=== PATIENT | male | born 1955 | race Caucasian/White ===

== ENCOUNTER 2020-10-26 14:03 | Emergency (ER) | payer MEDICARE ==
[2020-10-26 14:10] VITALS: BP 122/68; PULSE 80; RESP 18; TEMP 98.2
--- NOTE | 2020-10-26 14:44 | ED ---
Recheck HPI - General Chief Complaint: Recheck/Abnormal Lab/Rx Stated Complaint: Abnormal labs Time Seen by Provider: 10/26/20 14:11 Source: patient Mode of arrival: ambulatory Limitations: no limitations - History of Present Illness Initial Comments: Patient is a 64-year-old male with history of hypertension, diabetes, thyroid disorder, presenting to the emergency department for a recheck of abnormal labs. Patient states he had his 3 month follow-up with his doctor, they called him today stating that his potassium was elevated at 8.5 and that he needed to go into the ER. Patient denies any symptoms, no chest pain or shortness of breath, no nausea or vomiting, no elevated heart rate. He states he feels his normal self. Has been eating and drinking as normal. He has had no fevers. He has no complaints at all. Upon arrival to the ER, his vitals are stable. - Related Data Home Medications Medication Instructions Recorded Confirmed Atenolol [Tenormin] 100 mg PO DAILY 10/26/20 10/26/20 Atorvastatin [Lipitor] 40 mg PO HS 10/26/20 10/26/20 Calcium Carbonate [Calcium] 600 mg PO DAILY 10/26/20 10/26/20 Glimepiride [Amaryl] 1 mg PO BID 10/26/20 10/26/20 Levothyroxine Sodium [Synthroid] 112 mcg PO DAILY 10/26/20 10/26/20 Multivitamins, Thera [Multivitamin 1 tab PO DAILY 10/26/20 10/26/20 (formulary)] Omeprazole 40 mg PO DAILY 10/26/20 10/26/20 Pioglitazone [Actos] 30 mg PO DAILY 10/26/20 10/26/20 Triamterene-Hctz 37.5-25Mg 1 tab PO DAILY 10/26/20 10/26/20 [Maxzide 37.5-25] lisinopriL 40 mg PO DAILY 10/26/20 10/26/20 metFORMIN HCL [Glucophage] 1,000 mg PO BID 10/26/20 10/26/20 Allergies Allergy/AdvReac Type Severity Reaction Status Date / Time No Known Allergies Allergy Verified 10/26/20 14:37 Review of Systems ROS Statement: Those systems with pertinent positive or pertinent negative responses have been documented in the HPI. ROS Other: All systems not noted in ROS Statement are negative. Past Medical History Past Medical History: Diabetes Mellitus, Hyperlipidemia, Hypertension, Thyroid Disorder History of Any Multi-Drug Resistant Organisms: None Reported Past Surgical History: Tonsillectomy Past Psychological History: No Psychological Hx Reported Smoking Status: Never smoker Past Alcohol Use History: Occasional Past Drug Use History: None Reported General Exam - General Exam Comments Initial Comments: GENERAL: Patient is well-developed and well-nourished. Patient is nontoxic and in no acute distress. HEAD: Atraumatic, normocephalic. EYES: Pupils equal round and reactive to light, extraocular movements intact, sclera anicteric, conjunctiva are normal. Eyelids were unremarkable. ENT: TMs normal, nares patent, oropharynx clear without exudates. Moist mucous membranes. NECK: Normal range of motion, supple without lymphadenopathy or JVD. LUNGS: Unlabored respirations. Breath sounds clear to auscultation bilaterally and equal. No wheezes rales or rhonchi. HEART: Regular rate and rhythm without murmurs, rubs or gallops. ABDOMEN: Soft, nontender, normoactive bowel sounds. No guarding, no rebound. No masses appreciated. : Deferred MUSCULOSKELETAL: Normal extremities with adequate strength and normal range of motion, no pitting or edema. No clubbing or cyanosis. NEUROLOGICAL: Patient is alert and oriented x 3. Motor and sensory are also intact. Cranial nerves II through XII grossly intact. Symmetrical smile. Normal speech, normal gait. PSYCH: Normal mood, normal affect. SKIN: Warm, Dry, normal turgor, no rashes or lesions noted. Limitations: no limitations Course Vital Signs 10/26/20 14:06 Temperature 98.2 F Pulse Rate 80 Respiratory 18 Rate Blood Pressure 122/68 O2 Sat by Pulse 96 Oximetry Medical Decision Making - Medical Decision Making Patient is a 64-year-old male with history of diabetes, hypertension, presenting for a recheck of abnormal labs. He had labs done at his doctor's office today and returned a potassium of 8.5, he was told to go to the ER for evaluation. He is asymptomatic, his exam is normal. Vital signs are stable. Potassium was rechecked today, it is normal at 5.2. Rest of his labs are stable that was checked today. Patient stable for discharge. He can follow-up with his PCP. He is in agreement with this plan of care. Return parameters were discussed with him and he verbalized understanding. Case discussed with Dr. Salas. - Lab Data Result diagrams: 10/26/20 14:37 Lab Results 10/26/20 Range/Units 14:37 Sodium 138 (137-145) mmol/L Potassium 5.2 H (3.5-5.1) mmol/L Chloride 106 (98-107) mmol/L Carbon Dioxide 21 L (22-30) mmol/L Anion Gap 11 mmol/L BUN 38 H (9-20) mg/dL Creatinine 1.87 H (0.66-1.25) mg/dL Est GFR (CKD-EPI)AfAm 43 (>60 ml/min/1.73 sqM) Est GFR (CKD-EPI)NonAf 37 (>60 ml/min/1.73 sqM) Glucose 136 H (74-99) mg/dL Calcium 10.2 (8.4-10.2) mg/dL Magnesium 1.6 (1.6-2.3) mg/dL Total Bilirubin 0.3 (0.2-1.3) mg/dL AST 23 (17-59) U/L ALT 17 (4-49) U/L Alkaline Phosphatase 80 (38-126) U/L Creatine Kinase 79 (55-170) U/L Total Protein 7.2 (6.3-8.2) g/dL Albumin 4.5 (3.5-5.0) g/dL Disposition Clinical Impression: Abnormal laboratory test result Disposition: HOME SELF-CARE Condition: Stable Instructions (If sedation given, give patient instructions): Normal Exam (ED) Additional Instructions: Please return to the Emergency Department if symptoms worsen or any other concerns. Follow up with your PCP. Is patient prescribed a controlled substance at d/c from ED?: No Referrals: Kody Urrutia MD [Primary Care Provider] - 1-2 days Time of Disposition: 15:00
[2020-10-26 14:51] LABS: Albumin 4.5 g/dL (3.5-5.0); Calcium 10.2 mg/dL (8.4-10.2); Magnesium 1.6 mg/dL (1.6-2.3); Potassium 5.2 mmol/L (3.5-5.1); Total Bilirubin 0.3 mg/dL (0.2-1.3); Total Protein 7.2 g/dL (6.3-8.2)
== END 2020-10-26 15:04 | disposition home or self-care (01) ==
LOC: EC 14:03
DX: R79.9 Abnormal finding of blood chemistry, unspecified (principal); E07.9 Disorder of thyroid, unspecified; E11.9 Type 2 diabetes mellitus without complications; E78.5 Hyperlipidemia, unspecified; I10 Essential (primary) hypertension; Z79.84 Long term (current) use of oral hypoglycemic drugs; Z79.899 Other long term (current) drug therapy
CPT/HCPCS: 36415; 80053; 82550; 83735; 99283

== ENCOUNTER → 2021-03-01 | Outpatient (CLI) | payer MEDICARE ==
--- NOTE | 2021-03-01 15:41 | US ---
EXAMINATION TYPE: US kidneys/renal and bladder DATE OF EXAM: 03/01/2021 COMPARISON: NONE CLINICAL HISTORY: N18.31 CKD STAGE 3. abnormal labs EXAM MEASUREMENTS: Right Kidney: 9.6 x 4.0 x 5.4 cm Left Kidney: 11.3 x 4.5 x 5.2 cm Right Kidney: No hydronephrosis or masses seen Left Kidney: Anterior mid cystic lesion = 1.7 x 1.8 x 1.4 cm Bladder: distended, anechoic left jet seen There is no evidence for hydronephrosis at this point in time. No nephrolithiasis is seen. The urin marlene bladder is anechoic. Bilateral ureteral jets are seen. IMPRESSION: Renal cystic changes
== END | disposition home or self-care (01) ==
LOC: RADUSWWP 14:43
PROVIDERS: ATTEND Internal Medicine
DX: N28.1 Cyst of kidney, acquired (principal)
CPT/HCPCS: 76770

== ENCOUNTER → 2022-07-12 | Outpatient (CLI) | payer MEDICARE ==
--- NOTE | 2022-07-12 09:38 | US ---
EXAMINATION TYPE: US kidneys/renal and bladder DATE OF EXAM: 07/12/2022 COMPARISON: Renal ultrasound 03/01/2021 CLINICAL HISTORY: N18.31 CHRONIC KIDNEY DISEASE, STAGE 3A. CKD 3 EXAM MEASUREMENTS: Right Kidney: 10.7 x 4.8 x 3.9 cm Left Kidney: 11.6 x 4.9 x 4.2 cm Right Kidney: No hydronephrosis or masses seen Left Kidney: cystic area upper pole 1.9 x 1.6 x 1.9 cm. Bladder: wnl Bilateral Jets seen: Yes There is no evidence for hydronephrosis at this point in time. No nephrolithiasis is seen. Stable cy st within the anterior mid left kidney measuring up to 1.9 cm. The urinary bladder is anechoic. Bila teral ureteral jets are seen. IMPRESSION: 1. No hydronephrosis or nephrolithiasis. 2. Stable left renal cyst.
== END | disposition home or self-care (01) ==
LOC: RADUSWWP 06:44
PROVIDERS: ATTEND Internal Medicine
DX: N18.31 Chronic kidney disease, stage 3a (principal); N28.1 Cyst of kidney, acquired
CPT/HCPCS: 76770

== ENCOUNTER 2023-09-16 00:43 | Emergency (ER) | payer MEDICARE ==
[2023-09-16 01:21] VITALS: TEMP 97.7
[2023-09-16] MEDS: ONDANSETRON 4 MG/2 ML VIAL IVP STA (01:23)
[2023-09-16] MEDS: MORPHINE SULFATE 4 MG/ML SYRINGE IVP STA (01:24)
[2023-09-16] MEDS: SODIUM CHLORIDE 0.9% 1,000 ML IV STA (01:25)
[2023-09-16 01:59] LABS: Basophils % (A) 0 %; Eosinophils # (A) 0.1 k/uL (0-0.7); Eosinophils % (A) 1 %; HCT 43.8 % (39.0-53.0); HGB 14.3 gm/dL (13.0-17.5); Lymphocytes # (A) 1.1 k/uL (1.0-4.8); Lymphocytes % (A) 12 %; MCH 32.5 pg (25.0-35.0); MCHC 32.7 g/dL (31.0-37.0); MCV 99.5 fL (80.0-100.0); Mean Platelet Volume 7.8; Monocytes # (A) 0.6 k/uL (0-1.0); Monocytes % (A) 6 %; Neutrophils # (A) 7.4 k/uL (1.3-7.7); Neutrophils % (A) 79 %; Platelet Count 253 k/uL (150-450); RBC 4.41 m/uL (4.30-5.90); RDW 12.1 % (11.5-15.5); WBC 9.3 k/uL (3.8-10.6)
[2023-09-16 02:37] LABS: ALT 390 U/L (4-49); AST 333 U/L (17-59); African American GFR (CKD) 62 (>60 ml/min/1.73 sqM); Albumin 4.8 g/dL (3.5-5.0); Alkaline Phosphatase 308 U/L (38-126); Amylase 68 U/L (30-110); Anion Gap 16 mmol/L; Blood Urea Nitrogen 29 mg/dL (9-20); Carbon Dioxide 17 mmol/L (22-30); Chloride 100 mmol/L (98-107); Glucose 287 mg/dL (74-99); Lipase 147 U/L (23-300); Non-African American GFR(CKD) 54 (>60 ml/min/1.73 sqM); Sodium 133 mmol/L (137-145); Total Bilirubin 2.4 mg/dL (0.2-1.3); Total Protein 7.9 g/dL (6.3-8.2)
[2023-09-16 02:48] LABS: Potassium 5.4 mmol/L (3.5-5.1)
--- NOTE | 2023-09-16 03:19 | ED ---
Abdominal Pain HPI - General Chief Complaint: Abdominal Pain Stated Complaint: Abdominal Pain Time Seen by Provider: 09/16/23 00:52 Source: patient Mode of arrival: ambulatory Limitations: no limitations - History of Present Illness Initial Comments: 67-year-old male presenting with chief complaint of abdominal pain. Patient started having upper and periumbilical abdominal pain about 4 hours prior to arrival. He admits to nausea and vomiting. No hematic emesis. No fevers. No chest pain or difficulty breathing. No history of abdominal surgeries. No diarrhea. No hematochezia or melena. No dysuria or hematuria. No flank pain - Related Data Home Medications Medication Instructions Recorded Confirmed Atorvastatin [Lipitor] 40 mg PO HS 10/26/20 10/26/20 Calcium Carbonate [Calcium] 600 mg PO DAILY 10/26/20 10/26/20 Glimepiride [Amaryl] 1 mg PO BID 10/26/20 10/26/20 Levothyroxine Sodium [Synthroid] 112 mcg PO DAILY 10/26/20 10/26/20 Multivitamins, Thera [Multivitamin 1 tab PO DAILY 10/26/20 10/26/20 (formulary)] Omeprazole 40 mg PO DAILY 10/26/20 10/26/20 Pioglitazone [Actos] 30 mg PO DAILY 10/26/20 10/26/20 Triamterene-Hctz 37.5-25Mg 1 tab PO DAILY 10/26/20 10/26/20 [Maxzide 37.5-25] atenoloL [Tenormin] 100 mg PO DAILY 10/26/20 10/26/20 lisinopriL 40 mg PO DAILY 10/26/20 10/26/20 metFORMIN HCL [Glucophage] 1,000 mg PO BID 10/26/20 10/26/20 Allergies Allergy/AdvReac Type Severity Reaction Status Date / Time No Known Allergies Allergy Verified 09/16/23 00:47 Review of Systems ROS Statement: Those systems with pertinent positive or pertinent negative responses have been documented in the HPI. ROS Other: All systems not noted in ROS Statement are negative. Past Medical History Past Medical History: Diabetes Mellitus, Hyperlipidemia, Hypertension, Thyroid Disorder History of Any Multi-Drug Resistant Organisms: None Reported Past Surgical History: Tonsillectomy Past Psychological History: No Psychological Hx Reported Smoking Status: Never smoker Past Alcohol Use History: Occasional Past Drug Use History: None Reported General Exam Limitations: no limitations General appearance: alert, in no apparent distress Head exam: Present: atraumatic, normocephalic Eye exam: Present: normal appearance Neck exam: Present: normal inspection Respiratory exam: Present: normal lung sounds bilaterally. Absent: respiratory distress, wheezes, rales, rhonchi, stridor Cardiovascular Exam: Present: regular rate, normal rhythm, normal heart sounds. Absent: systolic murmur, diastolic murmur, rubs, gallop, clicks GI/Abdominal exam: Present: soft, tenderness. Absent: distended, guarding, rebound, rigid Neurological exam: Present: alert, oriented X3 Psychiatric exam: Present: normal affect, normal mood Skin exam: Present: warm, dry Course Vital Signs 09/16/23 09/16/23 00:45 03:21 Temperature 97.7 F Pulse Rate 81 87 Respiratory 18 16 Rate Blood Pressure 137/75 152/77 O2 Sat by Pulse 97 96 Oximetry Medical Decision Making - Medical Decision Making Was pt. sent in by a medical professional or institution (, PA, EQUINE MANAGER, urgent care, hospital, or fci...) When possible be specific @ -No Did you speak to anyone other than the patient for history (EMS, parent, family, police, friend...)? What history was obtained from this source @ -No Did you review nursing and triage notes (agree or disagree)? Why? @ -I reviewed and agree with nursing and triage notes Were old charts reviewed (outside hosp., previous admission, EMS record, old EKG, old radiological studies, urgent care reports/EKG's, fci records)? Report findings @ -No old charts were reviewed Differential Diagnosis (chest pain, altered mental status, abdominal pain women, abdominal pain men, vaginal bleeding, weakness, fever, dyspnea, syncope, headache, dizziness, GI bleed, back pain, seizure, CVA, palpatations, mental health, musculoskeletal)? @ -MDM Differential Abdominal Pain Men: Appendicitis, cholecystitis, diverticulosis, ischemic bowel, pancreatitis, hepatitis, UTI, gastroenteritis, AAA, incarcerated hernia, bowel obstruction, constipation, inflammatory bowel, hepatitis, peptic ulcer disease, splenic infarction, perforated viscus, testicular torsion... This is not meant to be an all-inclusive list EKG interpreted by me (3pts min.). @ -As above X-rays interpreted by me (1pt min.). @ -None done CT interpreted by me (1pt min.). @ -CT shows no bowel obstruction. Distal colonic diverticulosis without CT evidence for acute diverticulitis. Slight edematous wall thickening of the gallbladder could reflect product of underlying hepatocellular disease or possibly acute cholecystitis. Correlate clinically. No acute findings otherwise identified U/S interpreted by me (1pt. min.). @ -None done What testing was considered but not performed or refused? (CT, X-rays, U/S, labs)? Why? @ -None What meds were considered but not given or refused? Why? @ -None Did you discuss the management of the patient with other professionals (professionals i.e. , PA, EQUINE MANAGER, lab, RT, psych nurse, web content & social media manager, oracle applications analyst, teacher, commanding officer motorized squad, case reviewer)? Give summary @ -I spoke with Dr. Fuentes from [facility] who accepted transfer Was smoking cessation discussed for >3mins.? @ -No Was critical care preformed (if so, how long)? @ -No Were there social determinants of health that impacted care today? How? (Homelessness, low income, unemployed, alcoholism, drug addiction, transportation, low edu. Level, literacy, decrease access to med. care, group home, rehab)? @ -No Was there de-escalation of care discussed even if they declined (Discuss DNR or withdrawal of care, Hospice)? DNR status @ -No What co-morbidities impacted this encounter? (DM, HTN, Smoking, COPD, CAD, Cancer, CVA, ARF, Chemo, Hep., AIDS, mental health diagnosis, sleep apnea, morbid obesity)? @ -None Was patient admitted / discharged? Hospital course, mention meds given and route, prescriptions, significant lab abnormalities, going to OR and other pertinent info. @ -67-year-old male present with chief complaint of abdominal pain nausea and vomiting that started tonight. History and physical exam are conducted. Lab work shows no leukocytosis or anemia. Total bilirubin 2.4 AST 333 ALT 390 alkaline phosphatase 308. Potassium 5.4, however specimen was hemolyzed. CT shows evidence of cholecystitis. Given the patient's elevated bilirubin and concern for choledocholithiasis, patient will require transfer to a facility with GI services. He is given [facility] transfer. Patient is agreeable with this plan. I discussed this case with my attending Dr. Gan Undiagnosed new problem with uncertain prognosis? @ -No Drug Therapy requiring intensive monitoring for toxicity (Heparin, Nitro, Insulin, Cardizem)? @ -No Were any procedures done? @ -No Diagnosis/symptom? @ -Choledocholithiasis Acute, or Chronic, or Acute on Chronic? @ -Acute Uncomplicated (without systemic symptoms) or Complicated (systemic symptoms)? @ -Complicated Side effects of treatment? @ -No Exacerbation, Progression, or Severe Exacerbation? @ -No Poses a threat to life or bodily function? How? (Chest pain, USA, MA, pneumonia, PE, COPD, DKA, ARF, appy, cholecystitis, CVA, Diverticulitis, Homicidal, Suicidal, threat to staff... and all critical care pts) @ -Yes - Lab Data Result diagrams: 09/16/23 01:30 09/16/23:30 Lab Results 09/16/23 09/16/23 09/16/23 Range/Units 01:30 01:30 01:30 WBC 9.3 (3.8-10.6) k/uL RBC 4.41 (4.30-5.90) m/uL Hgb 14.3 (13.0-17.5) gm/dL Hct 43.8 (39.0-53.0) % MCV 99.5 (80.0-100.0) fL MCH 32.5 (25.0-35.0) pg MCHC 32.7 (31.0-37.0) g/dL RDW 12.1 (11.5-15.5) % Plt Count 253 (150-450) k/uL MPV 7.8 Neutrophils % 79 % Lymphocytes % 12 % Monocytes % 6 % Eosinophils % 1 % Basophils % 0 % Neutrophils # 7.4 (1.3-7.7) k/uL Lymphocytes # 1.1 (1.0-4.8) k/uL Monocytes # 0.6 (0-1.0) k/uL Eosinophils # 0.1 (0-0.7) k/uL Basophils # 0.0 (0-0.2) k/uL Sodium 133 L (137-145) mmol/L Potassium 5.4 H (3.5-5.1) mmol/L Chloride 100 (98-107) mmol/L Carbon Dioxide 17 L (22-30) mmol/L Anion Gap 16 mmol/L BUN 29 H (9-20) mg/dL Creatinine 1.35 H (0.66-1.25) mg/dL Est GFR (CKD-EPI)AfAm 62 (>60 ml/min/1.73 sqM) Est GFR (CKD-EPI)NonAf 54 (>60 ml/min/1.73 sqM) Glucose 287 H (74-99) mg/dL Plasma Lactic Acid Yariel 1.2 (0.7-2.0) mmol/L Calcium 10.0 (8.4-10.2) mg/dL Total Bilirubin 2.4 H (0.2-1.3) mg/dL AST 333 H (17-59) U/L ALT 390 H (4-49) U/L Alkaline Phosphatase 308 H (38-126) U/L Total Protein 7.9 (6.3-8.2) g/dL Albumin 4.8 (3.5-5.0) g/dL Amylase 68 (30-110) U/L Lipase 147 (23-300) U/L Disposition Clinical Impression: Choledocholithiasis Disposition: OTHER INSTITUTION NOT DEFINED Condition: Stable Referrals: Kody Urrutia MD [Primary Care Provider] - 1-2 days Time of Disposition: 04:08 - Out of Hospital Transfer - Req. Specs Out of Hospital Transfer - Requested Specifics: Other Emergency Center ([facility])
--- NOTE | 2023-09-16 03:40 | CT ---
EXAMINATION TYPE: CT abdomen pelvis w con DATE OF EXAM: 09/16/2023 COMPARISON: None. HISTORY: Patient states nausea, vomiting, and lower abdominal pain CT DLP: 1921.5 mGycm, Automated Exposure Control for Dose Reduction was Utilized. CONTRAST: CT scan of the abdomen and pelvis is performed with oral and with IV Contrast, patient injected with 100 mL of Isovue 300. FINDINGS: LUNG BASES: No significant abnormality is appreciated. LIVER/GB: Gallbladder has slight diffuse edematous wall thickening. Liver is diffusely low dense sugg esting fatty infiltrative hepatocellular disease. PANCREAS: No significant abnormality is seen. SPLEEN: No significant abnormality is seen. ADRENALS: No significant abnormality is seen. KIDNEYS: Central small parapelvic cysts in the left kidney. Additional small exophytic thin-walled cy st laterally in the left kidney. No hydronephrosis seen bilaterally. BOWEL: Normal gas-filled appendix from cecum. Prominent diverticulosis in the somewhat redundant sigm oid colon. No CT evidence for acute diverticulitis. No abnormal small or large bowel dilatation PROSTATE/SEMINAL VESICLES: No gross abnormality seen. LYMPH NODES: No greater than 1cm abdominal or pelvic lymph nodes are appreciated. OSSEOUS STRUCTURES: Multilevel prominent anterior spurring and some bridging osteophytes throughout t he thoracolumbar spine. OTHER: No significant additional abnormality is seen. IMPRESSION: 1. No bowel obstruction. Distal colonic diverticulosis without CT evidence for acute diverticulitis. 2. Slight edematous wall thickening of the gallbladder could reflect product of underlying hepatocell ular disease or possibly acute cholecystitis. Correlate clinically. 3. No acute findings otherwise identified.
[2023-09-16] MEDS: PIPERACILLIN-TAZOBACTAM 3.375 GM in SODIUM CHLORIDE 0.9% 100 ML IVPB STA (05:19)
[2023-09-16 06:05] VITALS: BP 138/68; PULSE 85; RESP 18
== END 2023-09-16 06:07 | disposition other institution (70) ==
LOC: EC 00:43
DX: K80.40 Calculus of bile duct with cholecystitis, unspecified, without obstruction (principal)
CPT/HCPCS: 36415; 80053; 82150; 83605; 83690; 85025; 74177; 99285; 96365; 96375 ×2; 96361 ×3; J2543; J2270; J2405; Q9967